=== PATIENT | male | born 1950 | race Caucasian/White ===

== ENCOUNTER 2016-08-29 13:02 | Day surgery (SDC) | payer MEDICARE, OTHER ==
--- NOTE | 2016-08-29 07:57 | HP ---
DATE OF SURGERY: 08/29/2016 HISTORY OF PRESENT ILLNESS: The patient is a 66 year-old with painful lesion top of his right shoulder scapular area upper back. He has two areas nonhealing in need of excision. PAST MEDICAL HISTORY: Hyperlipidemia, hypertension. PAST SURGICAL HISTORY: Spinal surgery, hip replacement, ankle, shoulder, cholecystectomy, prostate surgery, L5 spine surgery in the past. MEDICATIONS: Includes aspirin, Lipitor, Norvasc. ALLERGIES: NKDA. FAMILY HISTORY: Negative in regards to this problem. SOCIAL HISTORY: No smoking or alcohol abuse. REVIEW OF SYSTEMS: Ten systems reviewed. No chest pain or palpitations. Other systems negative or noncontributory as above and per preadmission questionnaire. PHYSICAL EXAMINATION: GENERAL: No acute distress. HEENT: Sclerae nonicteric. NECK: No JVD. CHEST: Equal excursion, nonlabored breathing. CVS: Regular rate and rhythm. ABDOMEN: Soft, nondistended. EXTREMITIES: No cyanosis, no edema. NEURO: Alert, oriented. BACK: Nonhealing lesion with a smaller one just above that. IMPRESSION: Nonhealing back lesions. I felt the patient would benefit from excisional biopsy. Risks and benefits explained in detail but not limited to bleeding or infection, risk of wound dehiscence or infection possibly requiring packing, general risk of aches, pains, burning or numbness, possibility for wider excision depending on operative path findings, general risk of anesthesia, deep venous thrombosis, pulmonary embolism, pneumonia, risk of cardiopulmonary event but not limited to. He understands and agrees to the planned procedure and will proceed with excisional biopsy of nonhealing back lesion as an outpatient.
[~2016-08-29 13:02] MED LIST: BICITRA 30 ML CUP ONE; BICITRA 30 ML CUP PO ONE; CEFAZOLIN 2 GM-D5W BAG** 50 ML IV ONE; DIPRIVAN 200 MG/20 ML IV ONE; Decadron 4 MG INJ IV ONE; Ephedrine Sulfate 50 MG/ML IV ONE; Lactated Ringers 1,000 ML IV ONE; Lactated Ringers 1,000 ML IV SCH; Pepcid 20 MG VIAL IV ONE; SUBLIMAZE 100 MCG/2 ML IV ONE; Sensorcaine 0.25% 10 ML ONE; TORAdol 30 mg Injection IV ONE; Zofran 4 MG/2 ML VIAL IV ONE
[2016-08-29 13:43] VITALS: PULSE 72
[2016-08-29] MEDS ORDERED: SUBLIMAZE 100 MCG/2 ML ONE (16:58)
[2016-08-29 17:34] VITALS: BP 184/89; O2SAT 100
--- NOTE | 2016-08-30 08:20 | OP ---
SURGERY DATE/TIME: 08/29/2016 1536 PREOPERATIVE DIAGNOSIS: Nonhealing lesion back some intermittent bleeding mid upper back and mid lower right back as well as irregular pigmented lesion right upper back. POSTOPERATIVE DIAGNOSIS: Nonhealing lesion back some intermittent bleeding mid upper back and mid lower right back as well as irregular pigmented lesion right upper back. Path pending. PROCEDURES: 1) Excisional biopsy upper mid back nonhealing lesion x2 excised in en bloc (2.5 cm with margins including two nonhealing lesions excised in one specimen 2.5 cm total with margins). 2) Excisional biopsy upper right back irregular pigmented lesion (approximately 2.5 cm with margins). 3) Excisional biopsy mid lower right back nonhealing lesion approximately 1.5 cm with margins. SURGEON: Dr. Jonn Jeter. ANESTHESIA: General. ESTIMATED BLOOD LOSS: Minimal. INDICATIONS: As noted above. Risks and benefits explained in detail and not limited to and consent obtained. DESCRIPTION OF PROCEDURE AND FINDINGS: The areas had been confirmed with the patient in the holding area and marked. He was taken to the operating room. General anesthesia was induced. The back is prepped and draped in usual sterile fashion. After official time out and no disagreement with planned procedure starting with the two lesions in the upper mid back these were excised together en bloc as one spindle-shaped excision pattern resulting in about 2.5 cm with margins. Dissection is carried down to normal appearing subcutaneous tissue beneath. The specimen is passed off. It was closed with interrupted 3-0 Vicryl closing the subcu and deep superficial subcu. Skin closed with 4-0 Vicryl. Interrupted 3-0 Prolene used to reinforce the incision. Attention is then turned to the mid lower right back. This lesion was excised in spindle-shaped fashion dissecting down to normal appearing subcutaneous tissue passing the specimen off. It measured about 1.5 cm including the margins about 3 cm long spindle-shaped excision pattern. This was closed with 3-0 Vicryl closing the deeper superficial subcu. Skin closed with 4-0 Vicryl. 3-0 Prolene was used to reinforce the area given location on the back. Attention was then turned to the upper right back this is more of an irregular pigmented lesion with some change in pigment color. Dissection is carried around this in transverse spindle-shaped fashion resulting in about 2.4 cm with margins around the area in question about a 4.5 to 5 cm long spindle-shaped excision. Dissection was carried down to normal appearing subcutaneous tissue beneath and the specimen passed off this was closed. It was a little bit snug. It was closed with interrupted 3-0 and 2-0 Vicryl closing the deep superficial subcu and deep dermis. The skin was closed with 4-0 Vicryl running subcuticular fashion and some interrupted 3-0 Prolene was used to reinforce the area. Steri-Strips and sterile dressing applied. The patient tolerated the procedure well. There were no immediate complications. Findings discussed with the family out in the waiting area.
== END 2016-08-29 18:04 | disposition home or self-care (01) ==
LOC: SDC 13:02
PROVIDERS: ATTEND Surgery
PROC: 0HB6XZX Excision of Back Skin, External Approach, Diagnostic (ICD-10-PCS; principal; 2016-08-29)
DX: D22.5 Melanocytic nevi of trunk (principal); L57.0 Actinic keratosis; L82.1 Other seborrheic keratosis; L98.9 Disorder of the skin and subcutaneous tissue, unspecified; I10 Essential (primary) hypertension; E78.5 Hyperlipidemia, unspecified
CPT/HCPCS: 00300; 36415; 88305; J0690; J1100; J1885; J2405; J2704; J3010

== ENCOUNTER 2017-04-23 13:16 | Emergency (ER) | payer MEDICARE, OTHER ==
[2017-04-23 13:31] VITALS: BP 154/85; PULSE 94; O2SAT 96
[2017-04-23] MEDS ORDERED: SUBLIMAZE 100 MCG/2 ML IV ONE (13:44)
[2017-04-23] MEDS ORDERED: Sodium Chloride 0.9% 1000 ML 1,000 ML IV STA (13:44)
[2017-04-23] MEDS ORDERED: Sodium Chloride 0.9% 1000 ML 1,000 ML ONE (13:51)
[2017-04-23] MEDS ORDERED: SUBLIMAZE 100 MCG/2 ML ONE (13:51)
--- NOTE | 2017-04-23 13:51 | ERPHSYRPT ---
- History of Present Illness Time Seen by Provider: 04/23/17 13:47 Patient Subjective Stated Complaint: fever for few days pain in side through his back where gall bladder used to be worried he has a block but hes also not urinating a lot either Triage Nursing Assessment: pt alert and orientedx3, able to ambulate by self, gait is steady, lung sounds clear, bowel sounds x2 upper quadrants , lower quadrants hypoactive to non existant, pulses present bilateral radius. Physician History: 66-year-old male with significant past medical history of hypertension, hyperlipidemia, history of gallbladder surgery in 2012, started having a fever, abdominal pain, more on the right upper quadrant, decreased urinary output and normal bowel movement since Monday. Patient states that he has a same type of symptoms when he had a gallbladder attack. He denies any chest pain, nausea or vomiting, but complaining of constipation since Monday. She took some MiraLAX without any help. Timing/Duration: day(s) (3-4 days) Quality: fullness Abdominal Pain Onset Location: RUQ Pain Radiation: no radiation Severity of Pain-Max: severe Severity of Pain-Current: moderate Modifying Factors: Improves With: nothing Associated Symptoms: loss of appetite Previous symptoms: no prior history Allergies/Adverse Reactions: CONTRAST Allergy (Uncoded 06/10/13 10:58) MRI CONTRAST ONLY Home Medications: Amlodipine Besylate 5 mg [Norvasc 5 mg] 1 tab PO DAILY 06/10/13 [History] Aspirin 81 gm Chew [Baby Aspirin 81 mg Chew] 1 tab PO DAILY 06/10/13 [ History] Atorvastatin Calcium [Lipitor] 5 mg PO DAILY 06/10/13 [History] Glucosam/Chond/Collagen/Hyalur [Glucosamine Chondroitin Cap] 2 tab PO DAILY [History] Hx Tetanus, Diphtheria Vaccination/Date Given: Yes Hx Influenza Vaccination/Date Given: No Hx Pneumococcal Vaccination/Date Given: No Immunizations Up to Date: Yes - Review of Systems Constitutional: No Fever, No Chills Eyes: No Symptoms Ears, Nose, & Throat: No Symptoms Respiratory: No Cough, No Dyspnea Cardiac: No Chest Pain, No Edema, No Syncope Abdominal/Gastrointestinal: Abdominal Pain, Constipation, No Nausea, No Vomiting , No Diarrhea Genitourinary Symptoms: No Dysuria Musculoskeletal: No Back Pain, No Neck Pain Skin: No Rash Neurological: No Dizziness, No Focal Weakness, No Sensory Changes Psychological: No Symptoms Endocrine: No Symptoms All Other Systems: Reviewed and Negative - Past Medical History Pertinent Past Medical History: Yes Neurological History: No Pertinent History ENT History: Cataracts Cardiac History: High Cholesterol, Hypertension Respiratory History: No Pertinent History Endocrine Medical History: No Pertinent History Musculoskeletal History: Other GI Medical History: No Pertinent History History: No Pertinent History Psycho-Social History: No Pertinent History Male Reproductive Disorders: Prostate Cancer - Past Surgical History Past Surgical History: Yes Neuro Surgical History: No Pertinent History Cardiac: No Pertinent History Respiratory: No Pertinent History Gastrointestinal: Cholecystectomy Genitourinary: No Pertinent History Musculoskeletal: Joint Replacement, Orthopedic Surgery, Other Male Surgical History: Prostate Surgery Other Surgical History: PART OF RT COLLARBONE REMOVED, BILAT HIP SX, 5 BACK SX, CATARACT SX. JADIEL 2 WEEKS AGO - Social History Smoking Status: Never smoker Exposure to second hand smoke: No Drug Use: none Patient Lives Alone: No - Nursing Vital Signs Nursing Vital Signs: Initial Vital Signs Temperature 98.7 F 04/23/17 13:16 Pulse Rate 94 H 04/23/17 13:16 Respiratory Rate 16 04/23/17 13:16 Blood Pressure 154/85 04/23/17 13:16 O2 Sat by Pulse Oximetry 96 04/23/17 13:16 Pain Scale Pain Intensity 4 - Physical Exam General Appearance: no apparent distress, alert Eye Exam: PERRL/EOMI, eyes nml inspection Ears, Nose, Throat Exam: normal ENT inspection, pharynx normal, moist mucous membranes Neck Exam: normal inspection, non-tender, supple, full range of motion Respiratory Exam: normal breath sounds, lungs clear, No respiratory distress Cardiovascular Exam: regular rate/rhythm, normal heart sounds Gastrointestinal/Abdomen Exam: tenderness (right upper quadrant), distention, No mass, No guarding, No pulsatile mass, No rebound Back Exam: normal inspection, normal range of motion, No CVA tenderness, No vertebral tenderness Extremity Exam: normal inspection, normal range of motion, pelvis stable Neurologic Exam: alert, oriented x 3, cooperative, normal mood/affect, nml cerebellar function, sensation nml, No motor deficits Skin Exam: normal color, warm, dry SpO2: 96 Oxygen Delivery: Room Air - Course Nursing assessment & vital signs reviewed: Yes - CT Exams Abdomen/Pelvis CT Interpretation: Tele-radiologist Report (right mid uretral 6 m obstructive stone, tiny bilateral renal stones) Ordered Tests: Active Orders 24 hr Category Date Time Status ABDOMEN AND PELVIS W/0 CONTRAS [CT] Stat Exams 04/23/17 13:45 Taken AMYLASE Stat Lab 04/23/17 14:00 Completed CBC W DIFF Stat Lab 04/23/17 14:00 Completed CMP Stat Lab 04/23/17 14:00 Completed CULTURE,URINE Stat Lab 04/23/17 14:30 Received LIPASE Stat Lab 04/23/17 14:00 Completed UA W/ MICROSCOPIC Stat Lab 04/23/17 14:30 Completed Urine Triage Profile Stat Lab 04/23/17 14:30 Completed Medication Summary Discontinued Medications Generic Name Dose Route Start Last Admin Trade Name Freq PRN Reason Stop Dose Admin Fentanyl Citrate 50 mcg 04/23/17 13:44 04/23/17 13:59 Sublimaze 100 Mcg/2 Ml IV 04/23/17 13:45 50 mcg STAT ONE Administration Fentanyl Citrate Confirm 04/23/17 13:51 Sublimaze 100 Mcg/2 Ml Administered 04/23/17 13:52 Dose 100 mcg .ROUTE .STK-MED ONE Sodium Chloride 1,000 mls @ 999 mls/hr 04/23/17 13:44 04/23/17 13:59 Sodium Chloride 0.9% 1000 Ml IV 04/23/17 14:44 999 mls/hr .Q1H1M STA Administration Sodium Chloride Confirm 04/23/17 13:51 Sodium Chloride 0.9% 1000 Ml Administered 04/23/17 13:52 Dose 1,000 mls @ ud .ROUTE .STK-MED ONE Lab/Rad Data: Laboratory Result Diagrams 04/23/17 14:00 04/23/17 14:00 Laboratory Results 04/23/17 04/23/17 04/23/17 Range/Units 14:30 14:30 14:00 WBC (4.0-10.5) K/mm3 RBC (4.1-5.6) M/mm3 Hgb (12.5-18.0) gm/dl Hct (42-50) % MCV (78-100) fl MCH (26-32) pg MCHC (32-36) g/dl RDW (11.5-14.0) % Plt Count (150-450) K/mm3 MPV (6-9.5) fl Gran % (36.0-66.0) % Lymphocytes % (24.0-44.0) % Monocytes % (0.0-12.0) % Eosinophils % (0.00-5.0) % Basophils % (0.0-0.4) % Basophils # (0-0.4) Sodium 143 (136-145) mEq/L Potassium 3.9 (3.5-5.1) mEq/L Chloride 108 H (98-107) mEq/L Carbon Dioxide 25.4 (21-32) mEq/L Anion Gap 13.0 (5-15) MEQ/L BUN 21 H (9-20) mg/dL Creatinine 1.34 H (0.55-1.30) mg/dl Estimated GFR 57 ML/MIN Glucose 89 (70-110) MG/DL Calcium 9.0 (8.5-10.1) mg/dL Total Bilirubin 0.80 (0.2-1.0) mg/dL AST 16 (15-37) U/L ALT 9 L (12-78) U/L Alkaline Phosphatase 85 (46-116) U/L Serum Total Protein 7.3 (6.4-8.2) gm/dL Albumin 3.5 (3.4-5.0) g/dL Amylase 52 (25-115) U/L Lipase 87 (73-393) U/L Ur Collection Type VOID Urine Color YELLOW (YELLOW) Urine Appearance CLEAR (CLEAR) Urine pH 5.0 (5-6) Ur Specific [place] 1.025 (1.005-1.025) Urine Protein TRACE (Negative) Urine Ketones SMALL (NEGATIVE) Urine Blood 250 (0-5) Ervin/ul Urine Nitrite NEGATIVE (NEGATIVE) Urine Bilirubin NEGATIVE (NEGATIVE) Urine Urobilinogen NORMAL (0-1) mg/dL Ur Leukocyte Esterase NEGATIVE (NEGATIVE) Urine Microscopic RBC 5-10 (0-2) /HPF Urine Microscopic WBC 0-2 (0-5) /HPF Ur Epithelial Cells FEW (FEW) /HPF Urine Bacteria FEW (NEGATIVE) /HPF Urine Mucus SLIGHT (NEGATIVE) /HPF Urine Glucose NEGATIVE (NEGATIVE) mg/dL Urine Opiates Level NEG. (NEGATIVE) Ur Methadone NEG. (NEGATIVE) Urine Barbiturates NEG. (NEGATIVE) Ur Phencyclidine (PCP) NEG. (NEGATIVE) Urine Amphetamine NEG. (NEGATIVE) U Benzodiazepine Level NEG. (NEGATIVE) Urine Cocaine NEG. (NEGATIVE) Urine Marijuana (THC) NEG. (NEGATIVE) Specimen Received 04/23/17 1430 04/23/17 Range/Units 14:00 WBC 7.1 (4.0-10.5) K/mm3 RBC 4.57 (4.1-5.6) M/mm3 Hgb 14.0 (12.5-18.0) gm/dl Hct 42.7 (42-50) % MCV 93.4 (78-100) fl MCH 30.6 (26-32) pg MCHC 32.8 (32-36) g/dl RDW 13.3 (11.5-14.0) % Plt Count 170 (150-450) K/mm3 MPV 11.3 H (6-9.5) fl Gran % 64.7 (36.0-66.0) % Lymphocytes % 15.7 L (24.0-44.0) % Monocytes % 14.2 H (0.0-12.0) % Eosinophils % 4.8 (0.00-5.0) % Basophils % 0.6 (0.0-0.4) % Basophils # 0.04 (0-0.4) Sodium (136-145) mEq/L Potassium (3.5-5.1) mEq/L Chloride (98-107) mEq/L Carbon Dioxide (21-32) mEq/L Anion Gap (5-15) MEQ/L BUN (9-20) mg/dL Creatinine (0.55-1.30) mg/dl Estimated GFR ML/MIN Glucose (70-110) MG/DL Calcium (8.5-10.1) mg/dL Total Bilirubin (0.2-1.0) mg/dL AST (15-37) U/L ALT (12-78) U/L Alkaline Phosphatase (46-116) U/L Serum Total Protein (6.4-8.2) gm/dL Albumin (3.4-5.0) g/dL Amylase (25-115) U/L Lipase (73-393) U/L Ur Collection Type Urine Color (YELLOW) Urine Appearance (CLEAR) Urine pH (5-6) Ur Specific [place] (1.005-1.025) Urine Protein (Negative) Urine Ketones (NEGATIVE) Urine Blood (0-5) Ervin/ul Urine Nitrite (NEGATIVE) Urine Bilirubin (NEGATIVE) Urine Urobilinogen (0-1) mg/dL Ur Leukocyte Esterase (NEGATIVE) Urine Microscopic RBC (0-2) /HPF Urine Microscopic WBC (0-5) /HPF Ur Epithelial Cells (FEW) /HPF Urine Bacteria (NEGATIVE) /HPF Urine Mucus (NEGATIVE) /HPF Urine Glucose (NEGATIVE) mg/dL Urine Opiates Level (NEGATIVE) Ur Methadone (NEGATIVE) Urine Barbiturates (NEGATIVE) Ur Phencyclidine (PCP) (NEGATIVE) Urine Amphetamine (NEGATIVE) U Benzodiazepine Level (NEGATIVE) Urine Cocaine (NEGATIVE) Urine Marijuana (THC) (NEGATIVE) Specimen Received - Progress Progress: improved, pain not gone completely Progress Note: 04/23/17 15:14 On further discussion. Patient states that patient has a radical prostatectomy 3 years ago and for which she is following urologist at [place]. Patient is informed that he has a right mid ureteral 6 mm obstructing stone. As well as tiny bilateral renal stones, which need further evaluation and management. I offered heme to be transferred to [facility] and seen by urologist, but patient preferred he is on urologist, Dr. Hendricks at [place]. So I urged him to call his office first thing in the morning and get an appointment for further management. We gave him CAT scan report as well as the disc to get it to Dr. Hendricks(urology) office. Counseled pt/family regarding: lab results, diagnosis, need for follow-up, rad results - Departure Time of Disposition: 15:21 Departure Disposition: Home Clinical Impression: Calculus of proximal right ureter Abdominal pain Qualifiers: Abdominal location: right upper quadrant Qualified Code(s): R10.11 - Right upper quadrant pain Constipation Qualifiers: Constipation type: unspecified constipation type Qualified Code(s): K59.00 - Constipation, unspecified Condition: Stable Critical Care Time: Yes Critical Care Time(excluding separately billable procedures): 30-74 minutes Referrals: JOSE CARLOS OLIVARES MD [Primary Care Provider] - Instructions: Kidney Stones, Abdominal Pain-Adult Additional Instructions: You have right mid ureteral 6 mm obstructive stone. You also have a multiple tiny kidney stones in both kidneys. You need of urgent evaluation by your urologist. Please call your urologist first thing in the morning and make an appointment. Take these CT abdomen report as well as the disc which you to your urologist office. Please follow the instructions given to you. Please take your medication as prescribed if given. If symptoms recur or get worse, come back to the emergency room if you cannot reach your primary care physician, or call your primary care physician for an appointment. Again if your symptoms get worse, come back to the emergency room. Thanks for visiting emergency room, and let us take care of you. Prescriptions: Ciprofloxacin [Cipro 500 MG] 500 mg PO BIDAC #20 tablet Docusate Sodium 100 mg [Colace 100 MG] 100 mg PO BID #30 Cyclobenzaprine HCl 10 mg [Flexeril 10 MG] 10 mg PO TID #30 tablet Tamsulosin HCl 0.4 mg [Flomax 0.4 MG] 0.4 mg PO DAILY #30 cap
[2017-04-23 14:19] LABS: BASOPHIL % 0.6 % (0.0-0.4); Eosinophil % 4.8 % (0.00-5.0); Granulocytes % 64.7 % (36.0-66.0); Lymphocytes % 15.7 % (24.0-44.0); Mean Cell Volume 93.4 fl (78-100); Mean Corpuscular Hemoglobin 30.6 pg (26-32); Mean Platelet Volume 11.3 fl (6-9.5); Monocytes % 14.2 % (0.0-12.0); Platelet Count 170 K/mm3 (150-450); Red Blood Count 4.57 M/mm3 (4.1-5.6); Red Cell Distribution Width 13.3 % (11.5-14.0); White Blood Count 7.1 K/mm3 (4.0-10.5)
[2017-04-23 14:38] LABS: ALBUMIN 3.5 g/dL (3.4-5.0); BILIRUBIN,TOTAL 0.8 mg/dL (0.2-1.0); Carbon Dioxide 25.4 mEq/L (21-32); Potassium 3.9 mEq/L (3.5-5.1); Total Protein 7.3 gm/dL (6.4-8.2)
[2017-04-23 14:52] LABS: ADD URINE CULTURE? YES (NO); Bacteria FEW /HPF (NEGATIVE); Bilirubin NEGATIVE (NEGATIVE); Blood 250 Ery/ul (0-5); COMPLETE URINE MICROSCOPIC? YES; Collection Type VOID; Epithelial Cells FEW /HPF (FEW); Glucose NEGATIVE (NEGATIVE); Leukocyte Esterase NEGATIVE (NEGATIVE); Mucus SLIGHT /HPF (NEGATIVE); WBC 0-2 /HPF (0-5)
--- NOTE | 2017-04-23 20:48 | XRAY ---
Indication: Right abdominal pain. Constipation. Multiple contiguous axial images obtained through the abdomen and pelvis without contrast as ordered. Comparison: June 10, 2013. Lung bases demonstrates mild bibasilar atelectasis. Heart is not enlarged. There is now a 6 mm right mid ureteral calculus, approximately L4 level. Proximal ureter is slightly prominent along with mild hydronephrosis and minimal perinephric stranding consistent with partial obstructive uropathy. Nonobstructing punctate left renal calculus. A few calcified splenic granulomas. Bilateral total hip prosthesis again produces extreme beam artifact limiting evaluation of the pelvic contents. Noncontrasted stomach and bowel loops appear nonobstructed. Again mild diffuse scattered colonic fecal debris. Normal appendix. No free fluid/air. There has been interval cholecystectomy. Remaining liver, gallbladder, pancreas, spleen, adrenal glands, kidneys, ureters, bladder, and aorta appear unremarkable for noncontrast exam. Osseous structures again demonstrates advanced degenerative changes throughout the spine. Impression: 1. New 6 mm right mid ureteral calculus producing partial obstruction. Nonobstructing left renal Sandeep calculus. 2. Mild fecal stasis without obstruction. Comment: Preliminary interpretation was made by [facility]. No discrepancy. CTDI 23.68
== END 2017-04-23 15:37 | disposition home or self-care (01) ==
LOC: ED 13:16
DX: R10.11 Right upper quadrant pain (principal); K59.00 Constipation, unspecified; N20.1 Calculus of ureter; E78.5 Hyperlipidemia, unspecified; E78.00 Pure hypercholesterolemia, unspecified; I10 Essential (primary) hypertension; Z79.899 Other long term (current) drug therapy; R50.9 Fever, unspecified; Z85.46 Personal history of malignant neoplasm of prostate
CPT/HCPCS: 36000; 36415; 74176; 80053; 80307; 81000; 82150; 83690; 85025; 87086; 96360; 96374; 99284; J3010

== ENCOUNTER 2017-11-02 13:29 | Emergency (ER) | payer MEDICARE, OTHER ==
[2017-11-02 14:37] VITALS: O2SAT 95
--- NOTE | 2017-11-02 14:53 | XRAY ---
Indication: Pain following fall 10 days ago. Comparison: None Single AP pelvis demonstrates osteopenia, advanced lower lumbar degenerative spondylosis, and bilateral total hip arthroplasty with intact bipolar prosthesis and acetabular screws. No other bony, articular, or soft tissue abnormalities.
--- NOTE | 2017-11-02 14:53 | XRAY ---
Indication: Pain following fall 10 days ago. Comparison: None 2 views of the right femur demonstrates osteopenia and total hip arthroplasty with intact bipolar prosthesis and acetabular screws. No other bony, articular, or soft tissue abnormalities. Knee reported separately.
--- NOTE | 2017-11-02 14:55 | XRAY ---
Indication: Pain following fall 10 days ago. Comparison: None 3 views of the right knee demonstrate osteopenia and mild tricompartmental degenerative changes. No other bony, articular, or soft tissue abnormalities.
--- NOTE | 2017-11-02 15:47 | ERPHSYRPT ---
- History of Present Illness Time Seen by Provider: 11/02/17 13:46 Source: patient, family () Patient Subjective Stated Complaint: pt reports falling on monday-concerned he damaged hip replacement Triage Nursing Assessment: pt pink warm and dry-resp easy and nonlabored-not a good historian-no deformity noted Physician History: CC: fall Hx: Slipped on a pebble one week ago. Landed on right hip. Post prosthesis. He has continued pain and some swelling. Does not take pain meds. No neck or back pain. No other injuries. Right hip and knee bothering him. No N/T/W. Loss of Consciousness: no loss of consciousness Allergies/Adverse Reactions: CONTRAST Allergy (Uncoded 11/02/17 14:34) MRI CONTRAST ONLY Home Medications: Amlodipine Besylate 5 mg [Norvasc 5 mg] 1 tab PO DAILY 06/10/13 [History] Aspirin 81 gm Chew [Baby Aspirin 81 mg Chew] 1 tab PO DAILY 06/10/13 [ History] Atorvastatin Calcium [Lipitor] 5 mg PO DAILY 06/10/13 [History] Hx Tetanus, Diphtheria Vaccination/Date Given: Yes Hx Influenza Vaccination/Date Given: No Hx Pneumococcal Vaccination/Date Given: No Immunizations Up to Date: Yes - Review of Systems Constitutional: No Symptoms Eyes: No Vision Changes Respiratory: No Dyspnea Musculoskeletal: Joint Pain, No Back Pain, No Neck Pain Neurological: No Focal Weakness, No Parasthesia - Past Medical History Pertinent Past Medical History: Yes Neurological History: No Pertinent History ENT History: Cataracts Cardiac History: High Cholesterol, Hypertension Respiratory History: No Pertinent History Endocrine Medical History: No Pertinent History Musculoskeletal History: Other GI Medical History: No Pertinent History History: No Pertinent History Psycho-Social History: No Pertinent History Male Reproductive Disorders: Prostate Cancer - Past Surgical History Past Surgical History: Yes Neuro Surgical History: No Pertinent History Cardiac: No Pertinent History Respiratory: No Pertinent History Gastrointestinal: Cholecystectomy Genitourinary: No Pertinent History Musculoskeletal: Joint Replacement, Orthopedic Surgery, Other Male Surgical History: Prostate Surgery Other Surgical History: PART OF RT COLLARBONE REMOVED, BILAT HIP SX, 5 BACK SX, CATARACT SX. JADIEL 2 WEEKS AGO - Social History Smoking Status: Never smoker Exposure to second hand smoke: No Drug Use: none Patient Lives Alone: No - Nursing Vital Signs Nursing Vital Signs: Initial Vital Signs Temperature 98.3 F 11/02/17 14:34 Pulse Rate 73 11/02/17 14:34 Respiratory Rate 18 11/02/17 14:34 Blood Pressure 138/78 11/02/17 14:34 O2 Sat by Pulse Oximetry 95 11/02/17 14:34 - [place] Coma Score Best Eye Response ([place]): (4) open spontaneously Best Verbal Response ([place]): (5) oriented Best Motor Response ([place]): (6) obeys commands [place] Total: 15 - Physical Exam General Appearance: alert Head Injury: no evidence of injury Eye Exam: PERRL/EOMI ENT Exam: airway nml Neck Exam: supple, No mid-line tenderness Respiratory/Chest Exam: normal breath sounds Cardiovascular Exam: regular rate/rhythm Gastrointestinal Exam: soft, No tenderness, No distention Back Exam: normal inspection, No vertebral tenderness Extremity Exam: other (tender right hip post lat and right knee. Intact ROM. Walking with a cane.) Neurologic Exam: alert, oriented x 3, cooperative, sensation nml, No motor deficits Skin Exam: warm, dry, No rash SpO2 Interpretation: normal SpO2: 95 Oxygen Delivery: Room Air - Course Nursing assessment & vital signs reviewed: Yes Ordered Tests: Active Orders 24 hr Category Date Time Status Edson Bandage Application -[facility] STAT Care 11/02/17 15:43 Active FEMUR Stat Exams 11/02/17 14:15 Completed KNEE (3 VIEWS) Stat Exams 11/02/17 13:51 Completed PELVIS (1 OR 2 VIEWS) Stat Exams 11/02/17 13:51 Completed - Progress Progress Note: 11/02/17 15:46 Xrays of right knee, femur, and pelvis neg for fx. Contusion instr given. Edson right knee. Declines pain medication. Counseled pt/family regarding: diagnosis, need for follow-up, rad results - Departure Time of Disposition: 15:46 Departure Disposition: Home Clinical Impression: Fall from standing, Contusion of right hip, Sprain of right knee Condition: Stable Critical Care Time: No Referrals: JOSE CARLOS OLIVARES MD [Primary Care Provider] - Instructions: Knee Sprain (DC), Contusion (DC) Additional Instructions: SPRAINS/STRAINS/CONTUSIONS 1. Rest the affected area as much as possible for the next few days. 2. Apply ice to the affected area for 20-30 minutes at a time, several times a day. 3. If you receive an elastic wrap, wear it only while awake for comfort and support. Re-wrap the elastic wrap if it feels too tight or too loose. 4. If swelling is present, elevate the affected part above the level of the heart for at least 2 to 3 days. 5. Use splints, slings, or crutches as instructed. 6. Watch for severe swelling, coldness, numbness, and discoloration of the fingers and toes. See your family physician or return to the emergency department if any of these are noted.
[2017-11-02 15:51] VITALS: BP 162/80; PULSE 71
== END 2017-11-02 15:57 | disposition home or self-care (01) ==
LOC: ED 13:29
DX: S70.01XA Contusion of right hip, initial encounter (principal); S83.91XA Sprain of unspecified site of right knee, initial encounter; W01.0XXA Fall on same level from slipping, tripping and stumbling without subsequent striking against object, initial encounter; Z96.641 Presence of right artificial hip joint; Z79.82 Long term (current) use of aspirin; Z79.899 Other long term (current) drug therapy
CPT/HCPCS: 72170; 73552; 73562; 99282